=== PATIENT | male | born 1975 | race American Indian/Alaskan Native ===

== ENCOUNTER 2016-09-09 09:33 | Outpatient (CLI) | payer OTHER ==
[2016-09-09 10:42] LABS: Blood Urea Nitrogen 10 mg/dL (9-20)
[2016-09-09] MEDS ORDERED: NACL ONE (12:13)
--- NOTE | 2016-09-09 14:50 | Cat Scan Report ---
CT OF THE ABDOMEN AND PELVIS WITH AND WITHOUT IV CONTRAST AND WITH ORAL CONTRAST: FINDINGS: The initial precontrast study demonstrates no renal calculi or other significant visceral calcifications. After intravenous contrast, the liver and spleen appear normal in size and configuration with no focal abnormalities. The gallbladder, pancreas, and adrenal glands are normal. The kidneys are normal in size and configuration with no evidence of mass or hydronephrosis. There is no adenopathy within the retroperitoneum. An umbilical hernia containing fat is present. The neck of the hernia measures 2.8 cm in diameter. There is no bowel within the hernia sac. There are no pelvic masses or abnormal fluid collections. No mesenteric inflammation is seen. IMPRESSION: Umbilical hernia containing only fat. No other significant findings are seen.
== END 2016-09-09 09:34 | disposition home or self-care (01) ==
LOC: CT 09:33
PROVIDERS: ATTEND Family Medicine
DX: K42.9 Umbilical hernia without obstruction or gangrene (principal); E66.01 Morbid (severe) obesity due to excess calories
CPT/HCPCS: 36415; 74178; 82565; 84520; Q9967